=== PATIENT | male | born 1975 | race Two or more races ===

== ENCOUNTER 2018-05-09 07:03 | Inpatient (IN) | payer MEDICAID ==
[~2018-05-09] VITALS: Ht 162.6 cm; Wt 83.0 kg
[2018-05-09 07:15] VITALS: Ht 162.6 cm; Wt 83.0 kg
[2018-05-09 07:50] LABS: BASOPHIL % 0.2 % (0-2); PLATELET COUNT 189 x10^3mcL (130-400); RED CELL DISTRIBUTION WIDTH 12.8 % (11.5-14.5)
[2018-05-09 08:39] LABS: CALCIUM 9.2 mg/dL (8.5-10.1); CHLORIDE SERUM 96 mmol/L (98-107); CREATININE SERUM 0.9 mg/dL (0.7-1.3); GFR1 > 60 mL/min; GLUCOSE SERUM 391 mg/dL (74-106); SODIUM SERUM 132 mmol/L (136-145)
[2018-05-09 08:46] LABS: ALBUMIN 4.2 g/dL (3.4-5.0); ALKALINE PHOSPHATASE 98 U/L (46-116); ALT/SGPT 38 U/L (16-63); AST/SGOT 18 U/L (15-37); BILIRUBIN TOTAL 0.64 mg/dL (0.20-1.00); TOTAL PROTEIN, SERUM 8.2 g/dL (6.4-8.2)
[2018-05-09 10:34] LABS: microscopic required? NO
[2018-05-09 11:00] LABS: UA SPECIFIC GRAVITY <=1.005 (1.005-1.035); urine erythrocyte NEGATIVE (NEGATIVE)
[2018-05-09 11:25] LABS: CHOLESTEROL/HDL RATIO 6.1; PHOSPHOROUS 2.8 mg/dL (2.5-4.9)
[2018-05-09 11:35] LABS: T3 TOTAL 1.19 ng/mL
[2018-05-09 11:36] LABS: FREE T4 0.78 ng/dL (0.76-1.46); FREE THYROXINE INDEX 2.3 ug/dL (1.4-4.5); T4(THYROXINE) 7.7 ug/dL (4.7-13.3)
[2018-05-09 12:55] VITALS: BP 130/87
[2018-05-09 16:29] LABS: AMPHETAMINE QUAL UR NONE DETECTED (See below)
[2018-05-09 17:13] VITALS: BP 145/92
[2018-05-09 22:03] VITALS: BP 149/88
[2018-05-10 04:53] VITALS: BP 107/81
[2018-05-10 06:18] LABS: BASOPHIL % 0.3 % (0-2); PLATELET COUNT 163 x10^3mcL (130-400); RED CELL DISTRIBUTION WIDTH 12.9 % (11.5-14.5)
[2018-05-10 06:28] LABS: CALCIUM 8.6 mg/dL (8.5-10.1); CARBON DIOXIDE 27.2 mmol/L (21-32); CHLORIDE SERUM 105 mmol/L (98-107); CREATININE SERUM 0.8 mg/dL (0.7-1.3); GFR1 > 60 mL/min; GLUCOSE SERUM 280 mg/dL (74-106); POTASSIUM SERUM 4.5 mmol/L (3.5-5.1); SODIUM SERUM 140 mmol/L (136-145)
[2018-05-10 09:36] VITALS: BP 121/85
[2018-05-10] MEDS ORDERED: PROTONIX20 MG PO (09:51)
[2018-05-10] MEDS ORDERED: METFORMIN HYDR500 M1 PO (09:51)
[2018-05-10 10:14] VITALS: BP 121/85
== END 2018-05-10 10:41 | disposition home or self-care (01) | DRG 243 ==
LOC: ED 07:03 → DU 10:16
PROVIDERS: Emergency Medicine; ADMIT Internal Medicine
DX: K21.9 Gastro-esophageal reflux disease without esophagitis (principal); E11.65 Type 2 diabetes mellitus with hyperglycemia; E87.1 Hypo-osmolality and hyponatremia; E02 Subclinical iodine-deficiency hypothyroidism; E78.5 Hyperlipidemia, unspecified; Z68.32 Body mass index [BMI] 32.0-32.9, adult; F17.210 Nicotine dependence, cigarettes, uncomplicated; Z79.84 Long term (current) use of oral hypoglycemic drugs
CPT/HCPCS: 82962; 83880; 84439; 90658; J7030